=== PATIENT | female | born 1995 | race Caucasian/White ===

== ENCOUNTER → 2019-01-20 | Outpatient (CLI) | payer OTHER ==
[~2019-01-20] VITALS: Ht 152.4 cm; Wt 86.2 kg
[2019-01-20] VITALS (7 sets, daily range): BP systolic 98–138; BP diastolic 62–77
[~2019-01-20] MED LIST: ALBU2.5V8 INH; BUDE10.2 IH; CETI10TA22 PO; DIPH25CA58 PO; DOXY100T PO; EPIPEN0.3 MG/0.3 IJ; ESCITALOPRAM OX10 MG PO; FLUT1DIS5 IH; IPRA3AMP29 NEB; LIDOCAINE WITH 8.4% SOD BICARB 3 ML DISP.SYRIN. IJ ONE; LIDOCAINE WITH 8.4% SOD BICARB 3 ML DISP.SYRIN. ONE; LORA0.5T96 PO; METO25TA4 PO; MIDAZOLAM HCL/PF 2 MG/2 ML VIAL. IV ONE; MIDAZOLAM HCL/PF 2 MG/2 ML VIAL. ONE; MONT10TA49 PO; OMEP20TA63 PO; PRED-220 PO; fentaNYL PF VIAL 100 MCG/2 ML VIAL IV ONE; fentaNYL PF VIAL 100 MCG/2 ML VIAL ONE; implanon SQ
--- NOTE | 2019-01-20 09:13 | RAD ---
CT-guided bone marrow biopsy. 01/20/2019 9:09 AM Indication: Low evaluate, leukocytosis Discussion: The risks and benefits of the procedure, including but not limited to, bleeding and infection were discussed patient. Informed consent was obtained. The patient was brought to the CT scanner and placed in the prone position. A timeout procedure was performed. Director Quality Assurance CT imaging of the pelvis demonstrated left ilium amenable to bone marrow biopsy. The overlying soft tissues were prepped and draped using maximum sterile barrier technique. 1% lidocaine without epinephrine was administered for local anesthesia. Under intermittent CT guidance, an OncControl needle was advanced into the bone marrow of the left iliac crest. 2 Aspirates and 1 core biopsy samples were obtained. Samples were delivered to pathology was present at the time of procedure. The needle was removed and manual pressure held to achieve hemostasis. No immediate complications were identified. The procedure was performed under conscious sedation including continuous cardiopulmonary monitoring via dedicated sedation nurse. Sedation time: 20 minutes Impression: Successful CT-guided bone marrow biopsy of the left iliac crest . PQRS Compliance Statement: One or more of the following individualized dose reduction techniques were utilized for this examination: 1. Automated exposure control 2. Adjustment of the mA and/or kV according to patient size 3. Use of iterative reconstruction technique PQRS Compliance Statement: One or more of the following individualized dose reduction techniques were utilized for this examination: 1. Automated exposure control 2. Adjustment of the mA and/or kV according to patient size 3. Use of iterative reconstruction technique
== END ==
LOC: INTRAD 07:19
PROVIDERS: ATTEND Internal Medicine Hematology & Oncology
DX: D72.829 Elevated white blood cell count, unspecified (principal)
CPT/HCPCS: 38222; 77012; 88184; 88185; 88237; 99152; J2250; J3010

== ENCOUNTER → 2019-01-20 | Outpatient (CLI) | payer OTHER ==
[~2019-01-20] VITALS: Ht 152.4 cm; Wt 86.2 kg
[~2019-01-20] MED LIST changes: -LIDOCAINE WITH 8.4% SOD BICARB 3 ML DISP.SYRIN. IJ ONE; -LIDOCAINE WITH 8.4% SOD BICARB 3 ML DISP.SYRIN. ONE; -MIDAZOLAM HCL/PF 2 MG/2 ML VIAL. IV ONE; -MIDAZOLAM HCL/PF 2 MG/2 ML VIAL. ONE; -fentaNYL PF VIAL 100 MCG/2 ML VIAL IV ONE; -fentaNYL PF VIAL 100 MCG/2 ML VIAL ONE
[2019-01-20 07:44] LABS: BASO # 0.1 x10^3/uL (0.0-0.2); BASO % 0 % (0-3); EOS # 0.7 x10^3/uL (0.0-0.7); EOS % 5 % (0-3); HEMOGLOBIN 14.2 g/dL (12.0-15.5); LYMPH # 6.1 x10^3/uL (1.0-4.8); LYMPH % 47 % (24-48); MEAN CORPUSCULAR HEMOGLOBIN 28 pg (25-35); MEAN CORPUSCULAR HGB CONC 34 g/dL (31-37); MEAN CORPUSCULAR VOLUME 83 fL (79-100); MONO # 0.8 x10^3/uL (0.0-1.1); MONO % 6 % (0-9); NEUT # 5.3 x10^3uL (1.8-7.7); NEUT % 41 % (31-73); PLATELET COUNT 326 x10^3/uL (140-400); RED BLOOD COUNT 5.06 x10^6/uL (3.50-5.40); RED CELL DISTRIBUTION WIDTH 13.4 % (11.5-14.5); WHITE BLOOD COUNT 12.9 x10^3/uL (4.0-11.0)
[2019-01-20 07:54] LABS: PROTHROMBIN TIME PATIENT 14.1 SEC (11.7-14.0)
[2019-01-20 08:24] VITALS: BP 110/63
--- NOTE | 2019-01-20 10:50 | NUR ---
pt A&O x3.denies pain. dressing dry and intact. tolerating po well. ambulated to BR w/o problem. d/c instructions given. questions answered. pt taken over to cardiology waiting room for echo per w/c
--- NOTE | 2019-01-20 12:14 | CARD ---
MR#: [id number] Date of Study: 01/20/2019 Ordering Physician: GISELLE VALDOVINOS, Referring Physician: James VELAZQUEZ: Gilma Beverly APPROVED REPORT EXAM: Two-dimensional and M-mode echocardiogram with Doppler and color Doppler. Other Information Quality : AverageHR: 62bpm Technically limited study due to body habitus and smoking. INDICATION Premature ventricular contractions RISK FACTORS Smoking 2D DIMENSIONS RVDd3.0 (2.9-3.5cm)Left Atrium(2D)3.4 (1.6-4.0cm) IVSd0.8 (0.7-1.1cm)Aortic Root(2D)2.8 (2.0-3.7cm) LVDd5.0 (3.9-5.9cm)LVOT Diameter2.1 (1.8-2.4cm) PWd0.8 (0.7-1.1cm)LVDs3.3 (2.5-4.0cm) FS (%) 33.9 %SV73.2 ml LVEF(%)62.5 (>50%) Aortic Valve AoV Peak César.107.3cm/sAoV VTI21.1cm AO Peak GR.4.6mmHgLVOT Peak César.74.5cm/s LVOT VTI 16.61cmAO Mean GR.3mmHg ONEL (VMAX)1.21ei9SUE (VTI)2.80cm2 Mitral Valve MV E Kfyyqjuv36.8cm/sMV DECEL [id number] MV A Rdenfizt22.9cm/sMV CBS74qa E/A Ratio1.7MVA (PHT)4.86cm2 TDI E/Lateral E'4.8E/Medial E'7.5 Pulmonary Valve PV Peak Hrhwurar18.3cm/sPV Peak Grad.4mmHg Tricuspid Valve TR P. Gwywgupa460es/sRAP [id number] TR Peak Gr.72veVlYRLN22kpHo Pulmonary Vein S1 Wvzwtzsw51.2cm/sD2 Xtuyvqhn61.7cm/s PVa [id number] LEFT VENTRICLE The left ventricle is normal size. There is normal left ventricular wall thickness. The left ventricu lar systolic function is low normal. The Ejection Fraction is 50%. There is slight global hypokinesis of the left ventricle. The left ventricular diastolic function and filling is normal for age. RIGHT VENTRICLE The right ventricle is normal size. There is normal right ventricular wall thickness. The right ventr icular systolic function is normal. ATRIA The left atrium size is normal. The right atrium size is normal. The interatrial septum is intact wit h no evidence for an atrial septal defect or patent foramen ovale as noted on 2-D or Doppler imaging. AORTIC VALVE The aortic valve is normal in structure and function. Doppler and Color Flow revealed no significant aortic regurgitation. There is no significant aortic valvular stenosis. MITRAL VALVE The mitral valve is normal in structure and function. There is no evidence of mitral valve prolapse. There is no mitral valve stenosis. Doppler and Color-flow revealed trace mitral regurgitation. TRICUSPID VALVE The tricuspid valve is normal in structure and function. Doppler and Color Flow revealed trace tricus pid regurgitation with an estimated PAP of 26 mmHg. There is no tricuspid valve stenosis. PULMONIC VALVE Doppler and Color Flow revealed trace pulmonic valvular regurgitation. There is no pulmonic valvular stenosis. GREAT VESSELS The aortic root is normal in size. The IVC is normal in size and collapses >50% with inspiration. PERICARDIAL EFFUSION There is no evidence of significant pericardial effusion. Critical Notification Critical Value: No <Conclusion> The left ventricular systolic function is low normal. The Ejection Fraction is 50%. There is slight global hypokinesis of the left ventricle. Technically difficult study. Signed by : Ritchie Hernandez, Electronically Approved : 01/20/2019 12:14:23
== END | disposition home or self-care (01) ==
LOC: ECHO 07:25
PROVIDERS: ATTEND Internal Medicine Hematology & Oncology
DX: I49.3 Ventricular premature depolarization (principal); D72.1 Eosinophilia; F17.200 Nicotine dependence, unspecified, uncomplicated; Z88.1 Allergy status to other antibiotic agents
CPT/HCPCS: 36415; 85025; 85610; 85730; 93306

== ENCOUNTER → 2021-08-20 | Outpatient (CLI) | payer OTHER ==
[2019-01-20 08:24] VITALS: BP 110/63
[~2021-08-20] MED LIST changes: -CETI10TA22 PO; +CETI10TA74 PO
--- NOTE | 2021-08-20 12:55 | RAD ---
History: Chronic abdominal pain Procedure: The patient ate a standard meal containing 2.1 mCi Tc-99m sulfur colloid. Scintigraphic images of the abdomen were obtained. Counts were obtained. Findings: Retention percentages are as follows: 1 Hr: 95 2 Hr:68 3 Hr:48 4 Hr:31 Normal Retention Percentage Range is as Follows: 1 Hr: 35-91% 2 Hr: 2.7-60% 3 Hr: 0.5-28% 4 Hr: 0-10% Impression: Time to half emptying for solids is estimated at 180 minutes which is delayed. Electronically signed by: Mike Garnica MD (08/20/2021 12:53 PM) [id number]
== END ==
LOC: NM 07:48 → MERGE 08:00
PROVIDERS: ATTEND Internal Medicine Gastroenterology
DX: K31.84 Gastroparesis (principal)
CPT/HCPCS: 78264; A9541